=== PATIENT | female | born 1960 | race Caucasian/White ===

== ENCOUNTER → 2018-08-04 | Outpatient (CLI) | payer BC | LOC: MC.RAD 09:15 | DX: Z12.31 Encounter for screening mammogram for malignant neoplasm of breast (principal) ==

== ENCOUNTER → 2019-09-15 | Outpatient (CLI) | payer BC | LOC: MC.RAD 18:09 | DX: Z12.31 Encounter for screening mammogram for malignant neoplasm of breast (principal) ==

== ENCOUNTER 2019-10-15 22:27 | Emergency (ER) | payer BC ==
[~2019-10-15] VITALS: Ht 170.2 cm; Wt 100.0 kg
[2019-10-15 22:43] VITALS: BP 121/77; PULSE 89; TEMP 97.5
[2019-10-15] MEDS ORDERED: DOXYCYCLINE 10100 MG PO (23:16)
[2019-10-15] MEDS ORDERED: CALCIUM 600-D 61 TAB PO (23:30)
[2019-10-15] MEDS ORDERED: MASON NATURAL1000 MG PO (23:30)
[2019-10-15] MEDS ORDERED: D3-5050000 IU PO (23:31)
[2019-10-15] MEDS ORDERED: EFFEXOR 75M75 MG/TAB PO (23:31)
[2019-10-15] MEDS ORDERED: LIPITOR 10MG10 MG PO (23:31)
== END 2019-10-15 23:38 | disposition home or self-care (01) ==
LOC: COL.ER 22:27
DX: S80.862A Insect bite (nonvenomous), left lower leg, initial encounter (principal); W57.XXXA Bitten or stung by nonvenomous insect and other nonvenomous arthropods, initial encounter

== ENCOUNTER → 2020-10-04 | Outpatient (CLI) | payer BC ==
[~2020-10-04] MED LIST: CALCIUM 600-D 61 TAB PO; CRUTCHES MC; D3-5050000 IU PO; DOXYCYCLINE 10100 MG PO; EFFEXOR 75M75 MG/TAB PO; LIPITOR 10MG10 MG PO; MASON NATURAL1000 MG PO
== END ==
LOC: MC.RAD 09-15 07:45
DX: Z12.31 Encounter for screening mammogram for malignant neoplasm of breast (principal); N64.89 Other specified disorders of breast

== ENCOUNTER 2020-10-08 21:00 | Emergency (ER) | payer BC ==
[~2020-10-08] VITALS: Ht 170.2 cm; Wt 102.7 kg
[~2020-10-08 21:00] MED LIST changes: -CRUTCHES MC
[2020-10-08 21:19] VITALS: TEMP 98.8
[2020-10-08] MEDS ORDERED: CRUTCHES MC (23:30)
[2020-10-08 23:50] VITALS: BP 132/62; PULSE 91
== END 2020-10-08 23:50 | disposition home or self-care (01) ==
LOC: COL.ER 21:00
DX: S89.91XA Unspecified injury of right lower leg, initial encounter (principal); E78.5 Hyperlipidemia, unspecified; F41.9 Anxiety disorder, unspecified; F32.9 Major depressive disorder, single episode, unspecified; Z88.0 Allergy status to penicillin; Z79.899 Other long term (current) drug therapy; X50.1XXA Overexertion from prolonged static or awkward postures, initial encounter
CPT/HCPCS: J1885; L1846

== ENCOUNTER → 2020-10-09 | Outpatient (CLI) | payer BC ==
[~2020-10-09] MED LIST changes: +CRUTCHES MC
== END ==
LOC: MC.RAD 07:00
DX: N64.89 Other specified disorders of breast (principal)

== ENCOUNTER → 2020-10-18 | Outpatient (CLI) | payer BC | LOC: MC.RAD 08:28 | DX: N64.89 Other specified disorders of breast (principal); R92.8 Other abnormal and inconclusive findings on diagnostic imaging of breast; Z98.82 Breast implant status ==